=== PATIENT | female | born 1965 | race Two or more races ===

== ENCOUNTER 2018-03-26 06:00 | Day surgery (SDC) | payer OTHER ==
[~2018-03-26 06:00] MED LIST: EUCERIN DAILY400 ML; GENERLAC10 GM/15 M PO; LEVO-T25 MCG PO; OMEGA 3-6-9 CO400 MG PO; PEPCID40 MG PO; PREPARATION H1 EAC2 RC; PROTONIX20 MG PO; VITAMIN D2000 UNIT PO
[2018-03-26] MEDS ORDERED: PERCOCET 5-3251 EACH PO (07:33)
[2018-03-26] MEDS ORDERED: COLACE100 MG PO (07:33)
== END 2018-03-26 13:00 | disposition home or self-care (01) ==
LOC: CIR.AMB 06:00
DX: K64.5 Perianal venous thrombosis (principal); K64.4 Residual hemorrhoidal skin tags; K64.8 Other hemorrhoids; K62.89 Other specified diseases of anus and rectum